=== PATIENT | female | born 1980 | race Caucasian/White ===

== ENCOUNTER 2018-01-09 20:00 | Inpatient (IN) | payer BC, OTHER ==
[2018-01-09] MEDS ORDERED: Zolpidem Tartrate 5 MG TAB PO PRN (20:09)
[2018-01-09] MEDS ORDERED: LR / Pitocin 40 units/1000 ml 1,000 ML IV PRN (20:09)
[2018-01-09] MEDS ORDERED: Promethazine HCl 25 MG/ML VIAL IM PRN (20:09)
[2018-01-09] MEDS ORDERED: Misoprostol 200 MCG TAB PR PRN (20:09)
[2018-01-09] MEDS ORDERED: Carboprost 250 MCG/ML AMP IM PRN (20:09)
[2018-01-09] MEDS ORDERED: Acetaminophen 500 MG TAB PO PRN (20:09)
[2018-01-09] MEDS ORDERED: Ondansetron HCl/PF 4 MG/2 ML Vial IVP PRN (20:09)
[2018-01-09] MEDS ORDERED: Ibuprofen 800 MG TAB PO PRN (20:09)
[2018-01-09] MEDS ORDERED: Lidocaine 1% (PF) 30 ML VIAL SC PRN (20:09)
[2018-01-09] MEDS ORDERED: LR 500 ML/Oxytocin 10 units 500 ML IV SCH (20:15)
[2018-01-09 23:08] VITALS: BMI 32.9
[2018-01-09] MEDS: Lactated Ringer's 1,000 ML IV SCH (23:30)
[2018-01-10 00:13] LABS: Mean Corpuscular HGB CONC 33.9 g/dL (32.0-36.0); Mean Corpuscular Hemoglobin 30.8 pg (27.0-31.0); Mean Corpuscular Volume 90.6 fl (81.0-99.0); Mean Platelet Volume 9.7 fL (7.4-10.4); Platelet Count 182 thou/uL (130-400); RBC Distribution Width 12.2 % (11.5-14.5); Red Blood Cell (RBC) Count 3.89 mill/uL (4.20-5.40)
[2018-01-10 00:31] LABS: ALT (SGPT) 10 U/L (8-55); AST (SGOT) 10 U/L (5-34); Albumin 3.4 g/dL (3.5-5.0); Alkaline Phosphatase 114 U/L (40-150); Anion Gap 10 mmol/L (10-20); BUN (Urea Nitrogen) 8 mg/dL (7.0-18.7); Bilirubin, Total 0.2 mg/dL (0.2-1.2); Calc. Creatinine Clearance 200 mL/min (70-130); Carbon Dioxide 21 mmol/L (22-29); Chloride 106 mmol/L (98-107); Estimated GFR-MDRD Greater than 90; Globulin 2.5 g/dL (2.4-3.5); Glucose 89 mg/dL (70-105); Potassium 3.4 mmol/L (3.5-5.1); Protein, Total 5.9 g/dL (6.0-8.3); Sodium 134 mmol/L (136-145)
[2018-01-10 00:49] LABS: Syphilis Antibody Nonreactive (Nonreactive); Syphilis Antibody Index 0.02 S/CO (<1.00 Non-Reactive)
[2018-01-10 01:14] LABS: HBSAg Index 0.14 S/CO (0-0.99); Hep B Surf Ag Non-Reactive S/CO (NonReactive)
[2018-01-10] MEDS ORDERED: Bupivacaine 0.5% 20 ML, Fentanyl 400 MCG in Sodium Chloride 0.9% 72 ML EPIDURAL SCH (03:30)
[2018-01-10] MEDS ORDERED: DISCONTINUE ALL PREVIOUS NARCOTICS FS SCH (03:30)
[2018-01-10] MEDS: Fentanyl 4mcg/Marcaine 0.1% Cassette 100 ML EPIDURAL SCH ×2 (04:23→11:21)
[2018-01-10] MEDS ORDERED: ePHEDrine/0.9% NaCl/PF SYRINGE 50 mg/10 ml SLOW IVP PRN (04:28)
[2018-01-10] MEDS ORDERED: diphenhydrAMINE 50 MG/ML VIAL IVP PRN (04:28)
[2018-01-10] MEDS ORDERED: Ondansetron HCl/PF 4 MG/2 ML Vial IVP PRN (04:28)
[2018-01-10] MEDS ORDERED: Eucerin (Mineral Oil/Petrolatum,White) 30 gm Jar TOP PRN (04:28)
[2018-01-10] MEDS ORDERED: Promethazine HCl 25 MG/ML VIAL IM PRN (04:28)
[2018-01-10] MEDS ORDERED: Acetaminophen 325 MG TAB PO PRN (04:28)
[2018-01-10] MEDS ORDERED: Naloxone HCl 0.4 mg/ml Vial IVP PRN ×2 (04:28)
[2018-01-10] MEDS ORDERED: Lactated Ringer's 500 ML IV PRN (04:28)
[2018-01-10] MEDS ORDERED: Communication Order-Pharmacy FS SCH (04:30)
[2018-01-10] MEDS: Lactated Ringer's 1,000 ML IV SCH ×2 (05:00→14:33)
[2018-01-10] MEDS: Misoprostol 100 MCG TAB VAG SCH ×3 (05:03→18:32)
[2018-01-10] MEDS ORDERED: Penicillin G Potassium 5 MILL.UNITS in Sodium Chloride 0.9% 100 ML IVPB SCH (05:30)
--- NOTE | 2018-01-10 08:07 | PDOC.EVN ---
Event Note - Event Note Event Note: Amniotomy performed-copious clear fluid. Leaked down slowly. -/-2... scalp lead placed..
[2018-01-10] MEDS ORDERED: Penicillin G Potassium 2.5 MILL.UNITS in Sodium Chloride 0.9% 100 ML IVPB SCH (09:00)
[2018-01-10] MEDS ORDERED: Penicillin G 2.5 MILL.units 50 ML ONE ×2 (09:52→13:41)
[2018-01-10] MEDS ORDERED: Bupivacaine 0.25% HCL 30 ML VIAL ONE (11:11)
[2018-01-10] MEDS ORDERED: LR / Pitocin 40 units/1000 ml 1,000 ML ONE (15:04)
[2018-01-10] MEDS ORDERED: Lidocaine 1% (PF) 30 ML VIAL ONE (15:04)
--- NOTE | 2018-01-10 15:53 | PDOC.OPDEL ---
OB Operative/Delivery Note Delivery Dr/Surgeon: Carl Pre-Delivery Diagnosis: medically indicated induction Procedure/Post Delivery Dx: spontaneous vaginal delivery Weeks gestation: 37 Anesthesia: epidural - Findings A Weight: 7 lb 3 oz - 1 min: 9 - 5 min: 9 - Additional Findings/Plan Placenta delivered: spontaneous Repaired Obstetrical Laceration: none Estimated blood loss: 200ml Compilations/Other Findings: none Post delivery plan: routine recovery
[2018-01-10] MEDS ORDERED: diphenhydrAMINE 25 MG CAP PO PRN (15:54)
[2018-01-10] MEDS ORDERED: Bisacodyl 10 MG SUPP PR PRN (15:54)
[2018-01-10] MEDS ORDERED: Adacel (T-DAP) 0.5 ML VIAL IM ONE (15:54)
[2018-01-10] MEDS ORDERED: Lanolin Ointment 7 GM TUBE TOP PRN (15:54)
[2018-01-10] MEDS ORDERED: Milk Of Magnesia 30 ML UDCUP PO PRN (15:54)
[2018-01-10] MEDS ORDERED: Preparation H Ointment 28 GM TUBE PR PRN (15:54)
[2018-01-10] MEDS ORDERED: LR / Pitocin 40 units/1000 ml 1,000 ML IV SCH (16:00)
[2018-01-10] MEDS: Ferrous Sulfate 325 MG TAB PO SCH (18:32)
[2018-01-10] MEDS: Ibuprofen 800 MG TAB PO SCH (18:43)
[2018-01-10] MEDS: Docusate Calcium (SURFAK) 240 MG CAP PO SCH (22:23)
[2018-01-11] MEDS: Ibuprofen 800 MG TAB PO SCH ×4 (06:30→22:45)
--- NOTE | 2018-01-11 08:06 | PDOC.PP ---
Post Progress Note Post Day #: 1 Subjective: No concerns. Working on . PO intake tolerated: yes Flatus: yes Ambulation: yes Vital Signs (12 hours) Temp Pulse Resp BP 01/11/18 07:40 97.7 F 95 20 121/66 01/11/18 04:00 98.0 F 95 18 01/11/18 00:00 98.0 F 95 18 Weight Weight 243 lb - Physical Examination General: NAD Cardiovascular: no m/r/g, RRR Respiratory: clear to auscultation bilaterally, non-labored breathing Abdominal: + bowel sounds, lochia, no distention, appropriately TTP Result Diagrams: 01/09/18 23:30 01/09/18 23:30 Additional Labs: Post Labs Hep Bs Antigen Non-Reactive S/CO (NonReactive) 01/09/18 23:30 - Assessment/Plan PPD 0-1. Doing well. Blood pressures normaklized. D/c home if baby is discharged today. Has 6 week post scheduled.
[2018-01-11] MEDS: Docusate Calcium (SURFAK) 240 MG CAP PO SCH ×2 (08:37→20:17)
[2018-01-11] MEDS: Ferrous Sulfate 325 MG TAB PO SCH ×2 (08:37→17:28)
[2018-01-11] MEDS: Prenatal Vitamin 1 TAB PO SCH (08:37)
[2018-01-11] MEDS ORDERED: traMADol HCl 50 MG TAB PO PRN (20:11)
[2018-01-11] MEDS: traMADol HCl 50 MG TAB PO PRN (20:17)
[2018-01-12] MEDS ORDERED: traMADol HCl 50 MG TAB PO PRN ×2
[2018-01-12] MEDS: traMADol HCl 50 MG TAB PO PRN ×2 (02:32→08:48)
[2018-01-12] MEDS: Ibuprofen 800 MG TAB PO SCH ×2 (05:46→14:12)
[2018-01-12] MEDS: Ferrous Sulfate 325 MG TAB PO SCH (07:23)
--- NOTE | 2018-01-12 07:47 | PDOC.PP ---
Post Progress Note Post Day #: 2 PO intake tolerated: yes Flatus: yes Ambulation: yes Vital Signs (12 hours) Temp Pulse Resp BP 01/11/18 20:00 97.9 F 100 20 130/82 Weight Weight 243 lb - Physical Examination General: NAD Cardiovascular: no m/r/g, RRR Respiratory: clear to auscultation bilaterally, non-labored breathing Abdominal: + bowel sounds, lochia, no distention, appropriately TTP Result Diagrams: 01/09/18 23:30 01/09/18 23:30 Additional Labs: Post Labs Hep Bs Antigen Non-Reactive S/CO (NonReactive) 01/09/18 23:30 - Assessment/Plan post day 2 doing well.d/c home f/u 6 weeks
[2018-01-12 08:09] VITALS: BP 124/87; TEMP 98
[2018-01-12] MEDS: Docusate Calcium (SURFAK) 240 MG CAP PO SCH (08:48)
[2018-01-12] MEDS: Prenatal Vitamin 1 TAB PO SCH (08:48)
== END 2018-01-12 14:20 | disposition home or self-care (01) | DRG 775 ==
LOC: L&D 22:32 → 3SW 01-10 18:18
PROVIDERS: ADMIT Obstetrics & Gynecology; ATTEND Obstetrics & Gynecology
PROC: 10E0XZZ Delivery of Products of Conception, External Approach (ICD-10-PCS; principal; 2018-01-10)
PROC: 10907ZC Drainage of Amniotic Fluid, Therapeutic from Products of Conception, Via Natural or Artificial Opening (ICD-10-PCS; 2018-01-10)
PROC: 10H07YZ Insertion of Other Device into Products of Conception, Via Natural or Artificial Opening (ICD-10-PCS; 2018-01-10)
PROC: 4A1H74Z Monitoring of Products of Conception, Cardiac Electrical Activity, Via Natural or Artificial Opening (ICD-10-PCS; 2018-01-10)
DX: O13.4 Gestational [pregnancy-induced] hypertension without significant proteinuria, complicating childbirth (principal); O99.824 Streptococcus B carrier state complicating childbirth; Z37.0 Single live birth; Z3A.37 37 weeks gestation of pregnancy
CPT/HCPCS: 51702; 80053; 81003; 85027; 86780; 87340; 90715; J2001; J2540; J3010; J3490; J7050; J7120; S0020

== ENCOUNTER 2022-04-25 11:59 | Outpatient (CLI) | payer BC | END 2022-04-25 12:00 | disposition home or self-care (01) | LOC: SCSRAD 11:59 | PROVIDERS: ATTEND Chiropractor | DX: M54.2 Cervicalgia (principal); M54.50 Low back pain, unspecified | CPT/HCPCS: 72040; 72100 ==